=== PATIENT | male | born 1955 | race Caucasian/White ===

== ENCOUNTER 2021-05-14 06:15 | Day surgery (SDC) | payer OTHER, BC ==
[2021-05-08 16:36] VITALS: BMI 36.7
[2021-05-14] MEDS ORDERED: CYCLOPENTOLATE 2% OPHTH SOLN 2 ML BOTTLE OD ONE ×3 (07:10→07:20)
[2021-05-14] MEDS ORDERED: CIPROFLOXACIN 0.3% EYE DROPS 5 ML BOTTLE OD ONE ×3 (07:10→07:20)
[2021-05-14] MEDS ORDERED: TROPICAMIDE 1% OPHTH SOLN 15 ML BOTTLE OD ONE ×3 (07:10→07:20)
[2021-05-14] MEDS ORDERED: PHENYLEPHRINE 2.5% OPHTH SOLN 15 ML BOTTLE OD ONE ×3 (07:10→07:20)
[2021-05-14 14:34] VITALS: TEMP 97.8
[2021-05-14 14:37] VITALS: BP 131/75; PULSE 80
== END 2021-05-14 09:35 | disposition home or self-care (01) ==
LOC: FASU 06:15
PROVIDERS: ATTEND Ophthalmology
PROC: 08RJ3JZ Replacement of Right Lens with Synthetic Substitute, Percutaneous Approach (ICD-10-PCS; principal; 2021-05-14 08:28)
DX: H26.8 Other specified cataract (principal)

== ENCOUNTER 2021-06-18 07:13 | Day surgery (SDC) | payer OTHER, BC ==
[2021-06-16 15:38] VITALS: BMI 36.6
[2021-06-18] MEDS: PHENYLEPHRINE 2.5% OPHTH SOLN 15 ML BOTTLE ONE ×3 (08:00→08:10)
[2021-06-18] MEDS: CYCLOPENTOLATE 2% OPHTH SOLN 2 ML BOTTLE ONE ×3 (08:00→08:10)
[2021-06-18] MEDS: CIPROFLOXACIN 0.3% EYE DROPS 5 ML BOTTLE ONE ×3 (08:00→08:10)
[2021-06-18] MEDS: TROPICAMIDE 1% OPHTH SOLN 15 ML BOTTLE ONE ×3 (08:00→08:10)
[2021-06-18 08:04] VITALS: TEMP 98.2
[2021-06-18] MEDS ORDERED: LIDOCAINE 1% P/F 10 MG/ML VIAL ONE (08:26)
[2021-06-18] MEDS ORDERED: NEO/POLYMYX B SULF/DEXAMETH OPHTHALMIC 5ML BOTTLE ONE (08:27)
[2021-06-18] MEDS ORDERED: BSS (NA/CA/MG/K) BALANCED SALT SOLUTION OPHTH SOLN 15 ML BOTTLE ONE (08:27)
[2021-06-18] MEDS ORDERED: CARBACHOL 0.01% INTRA-OCULAR 1.5 ML VIAL ONE (08:27)
[2021-06-18] MEDS ORDERED: MIDAZOLAM HCL 2 MG/2 ML SINGLE DOSE VIAL ONE (09:37)
[2021-06-18 10:45] VITALS: BP 121/71; PULSE 89
== END 2021-06-18 10:40 | disposition home or self-care (01) ==
LOC: FASU 07:13
PROVIDERS: ATTEND Ophthalmology
PROC: 08RK3JZ Replacement of Left Lens with Synthetic Substitute, Percutaneous Approach (ICD-10-PCS; principal; 2021-06-18 09:00)
DX: H26.8 Other specified cataract (principal)